=== PATIENT | male | born 1980 | race African-American/Black ===

== ENCOUNTER 2022-08-26 13:04 | Emergency (ER) | payer OTHER, SELFPAY ==
[2022-08-26] VITALS (7 sets, daily range): BP systolic 130–159; BP diastolic 80–105; PULSE 78–92; RESP 14–18; TEMP 36.4; O2SAT 98–100
--- NOTE | ~2022-08-26 | XR_ITS ---
EXAMINATION: XR chest 2V DATE: 08/26/2022 15:15 INDICATION: Shortness of breath. Bilateral arm tingling. Chills. TECHNIQUE: Frontal and lateral views of the chest were obtained. COMPARISON: None. FINDINGS: There is no pneumonia, pleural effusion, or pneumothorax. The heart size is normal. IMPRESSION: 1. No acute cardiopulmonary disease. Reviewed, dictated and finalized at location A. ADJUSTER
--- NOTE | ~2022-08-26 | CT_ITS ---
EXAMINATION: CT brain wo con DATE: 08/26/2022 15:09 INDICATION: Left-sided paresthesias. TECHNIQUE: Computed tomography (CT) of the head was performed without intravenous contrast. The mA wa s adjusted according to patient size. Iterative reconstruction technique was employed. The dose-lengt h product was 681.00 mGy-cm. COMPARISON: None FINDINGS: There is an old infarct in right occipital lobe. There is no intracranial hemorrhage, acute infarction, or abnormal intracranial mass lesion. The ventricles are normal in size. The orbits are normal. There is mild mucosal thickening in the paranasal sinuses. The mastoid air cells are normal. IMPRESSION: 1. Old infarct in the right occipital lobe. Reviewed, dictated and finalized at location A. T METAL OPERATOR
--- NOTE | 2022-08-26 13:13 | ECG_ITS ---
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
[2022-08-26 13:25] LABS: Basophils Absolute Auto 0.1 K/mm3 (0.0-0.1); Basophils Percent Auto 0.7 % (0.2-1.2); Eosinophils Absolute Auto 0.2 K/mm3 (0-0.3); Eosinophils Percent Auto 2.8 % (0-4.4); Hemoglobin 15.7 g/dL (14.0-18.0); Immature Granulocyte Absolute 0.01 K/mm3 (0.00-0.031); Immature Granulocyte Percent A 0.1 % (0-0.5); Lymphocytes Absolute Auto 2.04 K/mm3 (0.9-3.2); Lymphocytes Percent Auto 30.3 % (18.3-44.2); Mean Corpuscular HGB Conc 33.4 g/dl (32-36); Mean Corpuscular Hemoglobin 30.5 pg (26-34); Mean Corpuscular Volume 91.4 fl (80-100); Mean Platelet Volume 10.2 fl (7.4-10.4); Monocytes Absolute Auto 0.4 K/mm3 (0.1-0.6); Monocytes Percent Auto 5.6 % (2.6-8.5); Neutrophils Absolute Auto 4.1 K/mm3 (1.3-6.7); Neutrophils Percent Auto 60.5 % (45.5-73.1); Platelet Count Result 211 k/mm3 (150-375); Red Blood Count 5.14 M/mm3 (4.6-6.20); Red Cell Distribution Width 11.3 % (11.5-14.5); White Blood Count 6.7 K/mm3 (4.5-10.0)
[2022-08-26 13:41] LABS: Alanine Aminotransferase 84 U/L (6-50); Albumin Level 4.6 g/dL (3.5-5.1); Alkaline Phosphatase 50 U/L (38-126); Anion Gap 7 mmol/L (8-16); Aspartate Amino Transferase 45 U/L (17-59); Bilirubin,Total 0.8 mg/dL (0.2-1.3); Blood Urea Nitrogen 15 mg/dL (9-20); Calcium 9.2 mg/dL (8.4-10.2); Carbon Dioxide 30 mmol/L (22-30); Chloride 100 mmol/L (98-107); Estimated CRCL calculation 86 ml/min; Estimated Glomerular Filt Rate > 60; Glucose 97 mg/dL (65-110); Potassium 4.2 mmol/L (3.4-5.0); Sodium 137 mmol/L (137-145)
--- NOTE | 2022-08-26 14:59 | ED.NEUROSD ---
HPI - Neuro Symptoms/Deficit General Chief Complaint: Neuro Symptoms/Deficit Stated Complaint: bilateral arm tingling, near syncopal around 12 Time Seen by Provider: 08/26/22 14:19 History of Present Illness HPI Narrative: Patient is a 41-year-old male presenting with paresthesias and syncope. Patient states that he woke up this morning and felt somewhat unwell. He was able to go back to sleep and then this morning he developed left arm tingling. This then moved to include his right arm. States he also felt very lightheaded and like he was about to pass out. States he feels like his whole body is trembling. Denies headache, weakness, slurred speech, vision changes, abdominal pain, chest pain, shortness of breath, cough, nausea or vomiting, diarrhea, dysuria. States that he has had blurred vision for the last year that he is undergoing a neurologic work-up. Related Data Allergies Allergy/AdvReac Type Severity Reaction Status Date / Time No Known Allergies Allergy Verified 08/26/22 15:00 Review of Systems Review of Systems: All systems reviewed & are unremarkable except as noted in HPI and below Exam Narrative: GENERAL: Well-appearing, well-nourished, and in no acute distress. HEAD: Normocephalic, atraumatic. EYES: PERRLA and EOMI. ENT: Nares clear, no rhinorrhea or epistaxis. Mucous membranes moist. NECK: Supple. CHEST: Clear to auscultation. No respiratory distress. HEART: Regular rate and rhythm ABDOMEN: Soft, nontender, nondistended EXTREMITIES: Normal range of motion. No edema. SKIN: Warm, dry, no rash. NEURO: No focal deficits. Alert and oriented x3. 5 out of 5 strength in all extremities, no sensory deficits, no pronator drift, coordination is intact PSYCH: Normal mood and affect. Course Vital Signs Vital signs: Vital Signs Temperature 97.6 F 08/26/22 13:09 Pulse Rate 92 08/26/22 13:09 Respiratory Rate 14 08/26/22 13:09 Blood Pressure 140/97 H 08/26/22 13:09 Pulse Oximetry 98 08/26/22 13:09 Oxygen Delivery Room Air 08/26/22 13:09 Temperature 97.6 F 08/26/22 13:09 Pulse Rate 78 08/26/22 19:36 Respiratory Rate 18 08/26/22 19:36 Blood Pressure 140/81 08/26/22 19:36 Pulse Oximetry 99 08/26/22 19:36 Oxygen Delivery Room Air 08/26/22 13:09 MDM - Neuro Symptoms/Deficit MDM Narrative Medical decision making narrative: Patient is a 41-year-old male presenting with bilateral arm paresthesias and lightheadedness. Patient is hypertensive, otherwise vitals are within normal limits. EKG per my interpretation shows normal sinus rhythm, normal axis and intervals, no ST elevations or depressions. Blood work with no acute abnormalities. Creatinine is borderline elevated at 1.3, no priors for comparison. Fluids are ongoing. Troponin is undetectable. Chest x-ray shows no acute abnormalities. 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 Patient reports having been informed of this previously. Orthostatic vitals are within normal limits. Patient has been observed for several hours and is feeling improved. He still is having some tingling in both of his hands. He was able to ambulate without difficulty. Patient has an appointment on Wednesday with neurology. Advised that he keep this appointment. Recommended that he also follow-up with his PCP. Appropriate return precautions were given. Patient voiced understanding and is agreeable with plan. Discharged in stable condition. Differential Diagnosis Differential diagnosis: Likely peripheral neuropathy and other (paresthesias, syncope, dehydration, electrolyte abnormalities) Lab Data 08/26/22 13:19 08/26/22 13:19 Labs: Lab Results 08/26/22 08/26/22 08/26/22 Range/Units 13:19 13:19 13:19 WBC 6.7 (4.5-10.0) K/mm3 RBC 5.14 (4.6-6.20) M/mm3 Hgb 15.7 (14.0-18.0) g/dL Hct 47.0 (42.0-52.0) % MCV 91.4 (80-100) fl MCH 30.5 (26-34) pg MCHC 33.4
[2022-08-26 15:14] LABS: Magnesium 1.9 mg/dL (1.6-2.3)
[2022-08-26] MEDS: SODIUM CHLORIDE 0.9% IV 1,000 ML 999 ML IV CONT (15:16)
[2022-08-26 15:27] LABS: Troponin I < 0.012 ng/mL (0.000-0.034)
[2022-08-26 15:32] LABS: Appearance Urine Clear (Clear); Bilirubin Urine Negative (Negative); Blood Urine Negative (Negative); Color Urine Yellow (Yellow); Glucose Urine UA Negative (Negative); Ketones Urine Negative (Negative); Leukocyte Esterase Ur Negative LEU/UL (Negative); Nitrate Urine Negative (Negative); Protein Urine Negative (Negative); Specific Grav Ur 1.017 (1.001-1.035); Urobilinogen Urine 0.2 mg/dL (<2.0)
[2022-08-26 15:41] LABS: Add Urine Microscopic? NO
[2022-08-26 15:56] LABS: Influenza A QL RT-PCR Negative (Negative); Influenza B QL RT-PCR Negative (Negative); SARS-CoV-2 RNA PCR Negative
[2022-08-26 17:47] LABS: Free T4 Free Thyroxine Reflex 0.98 ng/dL (0.78-2.19)
[2022-08-26 19:17] LABS: Total Triiodothyronine (T3) 1.14 NG/ML (0.97-1.69)
== END 2022-08-26 19:35 | disposition home or self-care (01) ==
PROVIDERS: Emergency Medicine; Emergency Provider Emergency Medicine
DX: R20.2 Paresthesia of skin (principal); R42 Dizziness and giddiness
CPT/HCPCS: 36415; 70450; 71046; 80053; 81003; 83735; 84439; 84443; 84480; 84484; 85025; 87636; 93005; 96360; 99284; J7030

== ENCOUNTER 2023-04-21 17:46 | Emergency (ER) | payer OTHER, SELFPAY ==
[2023-04-21 17:55] VITALS: BP 135/90; PULSE 83; RESP 19; TEMP 36.9; O2SAT 100
--- NOTE | 2023-04-21 18:00 | ECG_ITS ---
Measurements Intervals [place] Rate: 78 P: 43 CA: 162 QRS: 25 QRSD: 98 T: -6 QT: 381 QTc: 435 Interpretive Statements SINUS RHYTHM BASELINE WANDER- I, III NORMAL ECG COMPARED TO ECG 08/26/2022 13:19:30 NO SIGNIFICANT CHANGES Electronically Signed On 04-21-2023 19:13:11 CDT by Al Miller D.O.
[2023-04-21 19:30] VITALS: BP 126/82; PULSE 72; PULSE 80; RESP 14; O2SAT 100
[2023-04-21 19:54] LABS: Basophils Percent Auto 0.3 % (0.2-1.2); Eosinophils Absolute Auto 0.2 K/mm3 (0-0.3); Eosinophils Percent Auto 1.8 % (0-4.4); Hematocrit 43.4 % (42.0-52.0); Hemoglobin 14.1 g/dL (14.0-18.0); Immature Granulocyte Absolute 0.02 K/mm3 (0.00-0.031); Immature Granulocyte Percent A 0.2 % (0-0.5); Lymphocytes Absolute Auto 1.71 K/mm3 (0.9-3.2); Lymphocytes Percent Auto 18.3 % (18.3-44.2); Mean Corpuscular HGB Conc 32.5 g/dl (32-36); Mean Corpuscular Hemoglobin 29.7 pg (26-34); Mean Corpuscular Volume 91.6 fl (80-100); Mean Platelet Volume 10.4 fl (7.4-10.4); Monocytes Absolute Auto 0.5 K/mm3 (0.1-0.6); Monocytes Percent Auto 5.7 % (2.6-8.5); Neutrophils Absolute Auto 6.9 K/mm3 (1.3-6.7); Neutrophils Percent Auto 73.7 % (45.5-73.1); Platelet Count Result 216 k/mm3 (150-375); Red Blood Count 4.74 M/mm3 (4.6-6.20); Red Cell Distribution Width 11.4 % (11.5-14.5); White Blood Count 9.3 K/mm3 (4.5-10.0)
[2023-04-21 20:02] LABS: Alanine Aminotransferase 97 U/L (6-50); Albumin Level 4.3 g/dL (3.5-5.1); Alkaline Phosphatase 59 U/L (38-126); Anion Gap 4 mmol/L (8-16); Aspartate Amino Transferase 54 U/L (17-59); Bilirubin,Total 0.8 mg/dL (0.2-1.3); Blood Urea Nitrogen 12 mg/dL (9-20); Calcium 9.1 mg/dL (8.4-10.2); Carbon Dioxide 30 mmol/L (22-30); Chloride 103 mmol/L (98-107); Estimated CRCL calculation 94 ml/min; Estimated Glomerular Filt Rate > 60; Glucose 97 mg/dL (65-110); Magnesium 1.8 mg/dL (1.6-2.3); Potassium 3.9 mmol/L (3.4-5.0); Sodium 137 mmol/L (137-145)
--- NOTE | 2023-04-21 20:58 | ED.GENADULT ---
HPI - General Adult General Chief complaint: Dizziness Stated complaint: WEAKNESS,BLURRED VISION Time Seen by Provider: 04/21/23 18:50 History of Present Illness HPI narrative: Patient is a 42-year-old male who presents ER with heart palpitations. He was at the store when he felt his heart racing became short of breath and lightheaded. Lasted 30 seconds. Resolved on its own. No chest pain or chest pressure. No numbness or weakness to an arm or leg. No slurred speech. Patient reports he has history of palpitations has been evaluated by his doctor. He is supposed to have a sleep study to evaluate further. If that is not revealing of any issue he may get an implanted heart monitor. Patient has history of a atrial septal aneurysm but no PFO. He has history of a stroke that left him with some visual loss. Related Data Allergies Allergy/AdvReac Type Severity Reaction Status Date / Time No Known Allergies Allergy Verified 08/26/22 15:00 Review of Systems Review of Systems: All systems reviewed & are unremarkable except as noted in HPI and below Constitutional: Constitutional: Denies chills, Denies fatigue and Denies fever(s) ENT: Reports dizziness, Denies nasal congestion and Denies sore throat Cardiovascular: Cardiovascular: Denies chest pain, Reports rapid heart rate and Denies radiating jaw, neck or arm pain Respiratory: Respiratory: Denies chest congestion, Denies cough and Reports dyspnea Gastrointestinal: Gastrointestinal: Denies abdominal pain, Denies nausea and Denies vomiting PMFSH Past Medical History Medical History (Updated 04/21/23 @ 21:09 by Mati Rajan MD) Atrial septal aneurysm CVA (cerebral vascular accident) Hypercholesterolemia Surgical History Surgical History (Updated 04/21/23 @ 21:09 by Mati Rajan MD) No pertinent past surgical history Exam Narrative: GENERAL: Well-appearing, well-nourished, and in no acute distress. HEAD: Normocephalic, atraumatic. ENT: Mucous membranes moist. CHEST: Clear to auscultation. No respiratory distress. HEART: Regular rate and rhythm. Normal peripheral pulses. ABDOMEN: Soft, nontender, nondistended. EXTREMITIES: Normal range of motion. No edema. SKIN: Warm, dry, no rash. NEURO: Alert and oriented x3. PSYCH: Normal mood and affect. Course Course Emergency Course: Patient resting comfortably. EKG/CBC/BMP/mag all normal. Patient without palpitations here. Recommend follow-up with PCP for further evaluation. Patient seems to have appropriate outpatient work-up occurring for this. Vital Signs Vital signs: Vital Signs Temperature 98.4 F 04/21/23 17:55 Pulse Rate 83 04/21/23 17:55 Respiratory Rate 19 04/21/23 17:55 Blood Pressure 135/90 04/21/23 17:55 Pulse Oximetry 100 04/21/23 17:55 Oxygen Delivery Room Air 04/21/23 17:55 Temperature 98.4 F 04/21/23 17:55 Pulse Rate 83 04/21/23 17:55 Respiratory Rate 19 04/21/23 17:55 Blood Pressure 135/90 04/21/23 17:55 Pulse Oximetry 100 04/21/23 17:55 Oxygen Delivery Room Air 04/21/23 17:55 Medical Decision Making Vital Signs Vital Signs: Vital Signs Temperature 98.4 F 04/21/23 17:55 Pulse Rate 83 04/21/23 17:55 Respiratory Rate 19 04/21/23 17:55 Blood Pressure 135/90 04/21/23 17:55 Pulse Oximetry 100 04/21/23 17:55 Oxygen Delivery Room Air 04/21/23 17:55 Temperature 98.4 F 04/21/23 17:55 Pulse Rate 83 04/21/23 17:55 Respiratory Rate 19 04/21/23 17:55 Blood Pressure 135/90 04/21/23 17:55 Pulse Oximetry 100 04/21/23 17:55 Oxygen Delivery Room Air 04/21/23 17:55 Lab Data 04/21/23 19:43 04/21/23 19:43 Labs: Lab Results 04/21/23 Range/Units 19:43 WBC 9.3 (4.5-10.0) K/mm3 RBC 4.74 (4.6-6.20) M/mm3 Hgb 14.1 (14.0-18.0) g/dL Hct 43.4 (42.0-52.0) % MCV 91.6 (80-100) fl MCH 29.7 (26-34) pg MCHC 32.5 (32-36) g/dl RDW 11.4 L
[2023-04-21 21:20] VITALS: BP 126/79; PULSE 82; RESP 13; O2SAT 96
== END 2023-04-21 21:20 | disposition home or self-care (01) ==
PROVIDERS: Emergency Provider Emergency Medicine
DX: R00.2 Palpitations (principal); I69.398 Other sequelae of cerebral infarction; H54.7 Unspecified visual loss; E78.00 Pure hypercholesterolemia, unspecified
CPT/HCPCS: 36415; 80053; 83735; 85025; 93005; 99284